=== PATIENT | male | born 1945 | race Caucasian/White ===

== ENCOUNTER → 2025-05-14 | Outpatient (CLI) | payer MEDICARE, OTHER, SELFPAY ==
--- NOTE | 2025-05-14 10:01 | CT_ITS ---
PROCEDURE: ABDOMEN/PELVIS WITH CONTRAST 05/14/2025 REASON FOR EXAM: ABD PAIN 2 to three-week history of upper central abdominal pain. TECHNIQUE: Procedure Code: [id number] Modality: CT Procedure: ABDOMEN/PELVIS WITH CONTRAST Coronal and Sagittal reconstruction series were provided. CONTRAST: Isovue-300 VOLUME: 100 mL One or more dose reduction techniques were used (e.g., Automated exposure control, adjustment of the mA and/or kV according to patient size, use of iterative reconstruction technique. RADIATION DOSE SUMMARY: CTDlvol: 22.15 mGy DLP: 1195.11 mGycm COMPARISON: None FINDINGS: Lung bases: There are increased markings at the left lung base with areas of confluence suggestive of either early infiltrate and/or scarring. Mild linear scarring at the right lung base. Prior CABG. Coronary artery calcification. Liver: Diffuse fatty infiltration. Gallbladder: Gallbladder is unremarkable. Spleen: Normal size. Pancreas: Diffuse fatty atrophy. Adrenals: Unremarkable. Kidneys: Unremarkable Bladder: The urinary bladder is slightly distended. Reproductive Organs: There is evidence of a penile pump with a reservoir in the anterior right lower pelvis. Bowel: There is diffuse wall thickening of the stomach. Clinical correlation recommended. Large amount of fecal material is seen in the colon. Appendix: Unremarkable Lymph nodes: Unremarkable. Vasculature: Mild diffuse atherosclerotic calcifications are noted. Peritoneum / Retroperitoneum: No evidence of ascites. Bones: Degenerative changes of the spine. CT/Abdomen/Pelvis WITH Contrast IMPRESSION: Increased markings at the left lung base with areas of confluence suggestive of either early infiltrate and/or scarring. Fatty infiltration of the liver. Diffuse gastric wall thickening. Clinical correlation recommended. Reading Location: [id number]
== END | disposition home or self-care (01) ==
PROVIDERS: PCP Family Medicine; Referring Provider Internal Medicine Gastroenterology; Visit Provider Internal Medicine Gastroenterology
DX: R10.9 Unspecified abdominal pain (principal)
CPT/HCPCS: 74177; Q9967